=== PATIENT | male | born 1960 | race African-American/Black ===

== ENCOUNTER → 2020-07-04 | Outpatient (CLI) | payer SELFPAY ==
[~2020-07-04] MED LIST: ATOR40TA59 PO; HYDR12.59 PO; LISI40TA6 PO; METO-239 PO; TADA5TAB PO
== END ==
LOC: LAB 15:23
PROVIDERS: ATTEND Nurse Anesthetist, Certified Registered
DX: Z01.812 Encounter for preprocedural laboratory examination (principal); Z13.9 Encounter for screening, unspecified; Z20.822 Contact with and (suspected) exposure to COVID-19
CPT/HCPCS: U0003; U0005

== ENCOUNTER → 2020-07-07 | Day surgery (SDC) | payer BC ==
[~2020-07-07] MED LIST changes: +IPRATRPIUM/ALBUTEROL 0.5/2.5MG 3 ML NEBU. NEB PRN; +IV RINGERS SOLUTION,LACTATED 1,000 ML IV SCH; +LIDOCAINE 2% PF 5 ML VIAL. ONE; +MIDAZOLAM HCL PF 2 MG/2 ML VIAL. IV ONE; +ONDANSETRON PF 4 MG/2 ML VIAL. IV PRN; +PROPOFOL 10,000 MCG/ML (20ML) VIAL IV ONE
[2020-07-07 13:08] VITALS: BP 108/75
== END | disposition home or self-care (01) ==
LOC: SURG 10:29
PROVIDERS: ATTEND Internal Medicine Gastroenterology
DX: Z12.11 Encounter for screening for malignant neoplasm of colon (principal); K63.5 Polyp of colon; K64.0 First degree hemorrhoids; I10 Essential (primary) hypertension; E78.00 Pure hypercholesterolemia, unspecified; Z79.899 Other long term (current) drug therapy; Z98.890 Other specified postprocedural states; Z96.641 Presence of right artificial hip joint; Z88.8 Allergy status to other drugs, medicaments and biological substances; Z88.6 Allergy status to analgesic agent
CPT/HCPCS: 45380; 88305; J2001; J2704; J7120